=== PATIENT | male | born 1970 | race Caucasian/White ===

== ENCOUNTER 2016-10-23 19:13 | Emergency (ER) | payer MEDICAID ==
[~2016-10-23] VITALS: Ht 182.9 cm; Wt 104.3 kg
[~2016-10-23 19:13] MED LIST: ASPI81TA27; CITA-73; CLON0.1T; LEVO112T4; MIRT45TA3; QUET300T14 PO
[2016-10-23 19:24] VITALS: BP 110/76
== END 2016-10-23 20:59 | disposition home or self-care (01) ==
LOC: ER 19:19
DX: L02.413 Cutaneous abscess of right upper limb (principal); L03.113 Cellulitis of right upper limb; J44.9 Chronic obstructive pulmonary disease, unspecified; I25.2 Old myocardial infarction; F17.210 Nicotine dependence, cigarettes, uncomplicated; F12.10 Cannabis abuse, uncomplicated; F15.10 Other stimulant abuse, uncomplicated

== ENCOUNTER 2020-05-28 05:35 | Emergency (ER) | payer MEDICAID ==
[~2020-05-28] VITALS: Ht 182.9 cm; Wt 108.9 kg
[~2020-05-28 05:35] MED LIST changes: +ASPI-543; -ASPI81TA27; +MIRT1TAB40; -MIRT45TA3
[2020-05-28 05:43] VITALS: BP 156/99
== END 2020-05-28 09:30 | disposition left against medical advice (07) ==
LOC: ER 05:35
DX: J06.9 Acute upper respiratory infection, unspecified (principal); J44.9 Chronic obstructive pulmonary disease, unspecified; I25.2 Old myocardial infarction; F17.210 Nicotine dependence, cigarettes, uncomplicated; F12.10 Cannabis abuse, uncomplicated; F15.10 Other stimulant abuse, uncomplicated
CPT/HCPCS: 71045; 99283; J7030

== ENCOUNTER 2020-06-25 00:11 | Emergency (ER) | payer MEDICAID ==
[~2020-06-25] VITALS: Ht 175.3 cm; Wt 95.3 kg
[2020-06-25 00:15] VITALS: BP 108/73
[2020-06-25] MEDS ORDERED: ONDANSETRON HCL 4 MG/2 ML VIAL IV ONE (00:30)
[2020-06-25] MEDS ORDERED: PANTOPRAZOLE 40 MG/10 ML VIAL INJ IV ONE (00:30)
[2020-06-25 03:23] LABS: Basophils # (auto) 0.1 10 ^3/uL (0-0.2); Basophils % (auto) 0.5 % (0.0-2.0); Eosinophils # (auto) 0 10 ^3/uL (0-0.8); Eosinophils % (auto) 0.2 % (0.0-7.0); Hematocrit 45.9 % (41.0-53.0); Hemoglobin 15.5 g/dL (13.5-17.5); Lymphocytes # (auto) 1.3 10 ^3/uL (0.4-5.4); Lymphocytes % (auto) 10.8 % (10.0-50.0); Mean Corpuscular Hemoglobin 31.4 pg (28.0-32.0); Mean Corpuscular Hgb Conc. 33.8 g/dL (32.0-36.0); Mean Corpuscular Volume 92.8 fL (80.0-100.0); Monocytes # (auto) 0.8 10 ^3/uL (0-1.3); Monocytes % (auto) 6.9 % (0.0-12.0); Neutrophils # (auto) 9.8 10 ^3/uL (1.6-8.6); Neutrophils % (auto) 81.6 % (37.0-80.0); Nucleated Red Blood Cells % 0.1 %; Red Blood Cells 4.94 10^6/uL (4.5-5.90); Red Cell Distribution Width 14.1 % (11.8-14.3)
[2020-06-25 03:40] LABS: Albumin 4.1 g/dL (3.4-5.0); Calcium 9.1 mg/dL (8.5-10.1); Potassium 5.1 mmol/L (3.5-5.1)
[2020-06-25 03:43] LABS: BUN/Creatinine Ratio 12.9; Bilirubin, Total 0.4 mg/dL (0.2-1.0); Total Protein 7.6 g/dL (6.4-8.2)
== END 2020-06-25 07:32 | disposition home or self-care (01) ==
LOC: ER 00:11 → EDBD 00:11 → ER 07:32
DX: R11.2 Nausea with vomiting, unspecified (principal); R51.9 Headache, unspecified; J44.9 Chronic obstructive pulmonary disease, unspecified; I25.2 Old myocardial infarction; F17.210 Nicotine dependence, cigarettes, uncomplicated; F12.10 Cannabis abuse, uncomplicated; F15.10 Other stimulant abuse, uncomplicated
CPT/HCPCS: 36415; 80053; 85025

== ENCOUNTER 2020-07-21 02:37 | Emergency (ER) | payer MEDICAID ==
[~2020-07-21] VITALS: Ht 182.9 cm; Wt 108.9 kg
[2020-07-21 02:52] VITALS: BP 143/85
[2020-07-21 03:23] LABS: Basophils # (auto) 0.1 10 ^3/uL (0-0.2); Basophils % (auto) 0.7 % (0.0-2.0); Eosinophils # (auto) 0.2 10 ^3/uL (0-0.8); Hematocrit 42.5 % (41.0-53.0); Hemoglobin 14.6 g/dL (13.5-17.5); Lymphocytes # (auto) 3.1 10 ^3/uL (0.4-5.4); Lymphocytes % (auto) 41.2 % (10.0-50.0); Mean Corpuscular Hemoglobin 31.9 pg (28.0-32.0); Mean Corpuscular Hgb Conc. 34.4 g/dL (32.0-36.0); Mean Corpuscular Volume 92.8 fL (80.0-100.0); Monocytes # (auto) 0.7 10 ^3/uL (0-1.3); Monocytes % (auto) 9.4 % (0.0-12.0); Neutrophils # (auto) 3.4 10 ^3/uL (1.6-8.6); Neutrophils % (auto) 45.7 % (37.0-80.0); Platelet Count (auto) 219 10^3/uL (140-450); Red Blood Cells 4.58 10^6/uL (4.5-5.90); Red Cell Distribution Width 13.8 % (11.8-14.3); White Blood Cell 7.4 10^3/uL (4.4-10.8)
[2020-07-21 03:41] LABS: BUN/Creatinine Ratio 10.2; Calcium 8.8 mg/dL (8.5-10.1)
[2020-07-21 03:43] LABS: Bilirubin, Total 0.3 mg/dL (0.2-1.0); Total Protein 7.2 g/dL (6.4-8.2)
== END 2020-07-21 04:49 | disposition left against medical advice (07) ==
LOC: ER 02:38
DX: R10.11 Right upper quadrant pain (principal); Z53.21 Procedure and treatment not carried out due to patient leaving prior to being seen by health care provider
CPT/HCPCS: 36415; 80053; 83690; 85025; J7030

== ENCOUNTER 2025-03-10 04:18 | Emergency (ER) | payer MEDICAID ==
[~2025-03-10] VITALS: Ht 182.9 cm; Wt 128.6 kg
--- NOTE | 2025-03-10 04:48 | ED.PDOC ---
History of Present Illness HPI Comments 55 y/o obese M presents with c/c of RUQ abdominal pain. Patient endorses on sudden onset of pain after coughing, excessively, earlier, this morning. Denial of any nausea, vomiting, urinary symptoms, or further acute symptoms at this time. No further pertinent history, lifestyle changes, or events endorsed. Chief Complaint: Rib Pain Time Seen by MD: 04:45 Primary Care Provider: UNK Allergies: Coded Allergies: NO KNOWN ALLERGIES (Unverified , 06/25/20) Home Meds Active Scripts Amlodipine Besylate (Amlodipine Besylate) 5 Mg Tab, 1 TAB PO DAILY for 90 Days, #90 TAB 5 Refills Prov:DEMETRA ASCENCIO MD 03/10/25 Dicyclomine Hcl (BENTYL CAPSULE) 10 Mg Cp, 1 CAP PO Q6HPRN PRN, #100 CAP 3 Refills Prov:DEMETRA ASCENCIO MD 03/10/25 Reported Medications Clonidine Hydrochloride (Clonidine Hcl) 0.1 Mg Tab, #60 03/12/15 Aspirin (Aspir-Low) 81 Mg Tab, #30 03/12/15 Mirtazapine (Mirtazapine Oral Disintegrating Tablet) 45 Mg Tab, #30 15 Citalopram Hydrobromide (Citalopram Hydrobromide) 40 Mg Tab, #30 03/12/15 Quetiapine Fumerate (Seroquel) 300 Mg Tab, 1 TAB PO QPM, #30 TAB 1 Refill 03/12/15 Levothyroxine Sodium (Levothyroxine Sodium) 112 Mcg Tab, #30 03/12/15 Information Source: Patient Mode of Arrival: Ambulatory Past Medical History PAST MEDICAL HISTORY: COPD, Depression, [place], Schizophrenia Surgical History: Denies all surgeries Family History Family History: No family hx of Stroke Social History Smoker: Cigarettes, Greater Than 1 Pack/Day Alcohol: Heavy Drugs: Marijuana, Methamphetamine Lives In: Home All Other Systems: Reviewed and Negative (As per HPI) Physical Exam General Appearance: Mild Distress, Obese HEENT: Normal ENT Inspection, Pharynx Normal, TMs Normal Neck: Full Range of Motion, Non-Tender, Normal, Normal Inspection Respiratory: Chest Non-Tender, Lungs Clear, No Accessory Muscle Use, No Respiratory Distress, Normal Breath Sounds Cardiovascular: No Edema, No JVD, No Murmur, No Gallop, Normal Peripheral Pulses, Regular Rate/Rhythm Breast Exam: Deferred Gastrointestinal: No Organomegaly, No Pulsatile Mass, Normal Bowel Sounds, RUQ (tenderness), Soft, Tenderness (RUQ area) Genitalia: Deferred Pelvic: Deferred Rectal: Deferred Extremities: No calf tenderness, Normal capillary refill, Normal inspection, Normal range of motion, Non-tender, No pedal edema Musculoskeletal : Apperance: Normal Neurologic: Alert, 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 Was a procedure done?: No Differential Dx Considerations may include: cholelithiasis, cholecystitis, GERD, PUD, gastritis, gastroenteritis, musculoskeletal pain, nephrolithiasis, pyelonephritis, among others X-Ray, Labs, Meds, VS Vital Signs Date Time Temp Pulse Resp B/P (MAP) Pulse Ox O2 Delivery O2 Flow Rate FiO2 03/10/25 05:25 98.3 79 19 139/105 (116) 98 98.3 03/10/25 04:32 85 03/10/25 04:27 97.7 89 24 175/106 91 97.7 Lab Test 03/10/25 05:12 Range/Units White Blood Count 6.5 4.4-10.8 10^3/uL Red Blood Count 4.40 L 4.5-5.90 10^6/uL Hemoglobin 14.4 13.5-17.5 g/dL Hematocrit 41.7 41.0-53.0 % Mean Corpuscular Volume 94.7 80.0-100.0 fL Mean Corpuscular Hemoglobin 32.8 H 28.0-32.0 pg Mean Corpuscular Hemoglobin Concent 34.6 32.0-36.0 g/dL Red Cell Distribution Width 14.5 H 11.8-14.3 % Platelet Count 169 140-450 10^3/uL Mean Platelet Volume 9.0 6.9-10.8 fL Neutrophils (%) (Auto) 51.9 37.0-80.0 % Lymphocytes (%) (Auto) 33.6 10.0-50.0 % Monocytes (%) (Auto) 8.8 0.0-12.0 % Eosinophils (%) (Auto) 4.3 0.0-7.0 % Basophils (%) (Auto) 1.4 0.0-2.0 % Neutrophils # (Auto) 3.4 1.6-8.6 10 ^3/uL Lymphocytes # (Auto) 2.2 0.4-5.4 10 ^3/uL Monocytes # (Auto) 0.6 0-1.3 10 ^3/uL Eosinophils # (Auto) 0.3 0-0.8 10 ^3/uL Basophils # (Auto) 0.1 0-0.2 10 ^3/uL Nucleated Red Blood Cells 0.2 % Sodium Level 137 136-145 mmol/L Potassium Level 4.0 3.5-5.1 mmol/L Chloride Level 103 98-107 mmol/L Carbon Dioxide Level 24 20-31 mmol/L Anion Gap 10 5-15 Blood Urea Nitrogen 11 9-23 mg/dL Creatinine 1.25 0.700-1.30 mg/dL Glomerular Filtration Rate Calc 68 >90 mL/min BUN/Creatinine Ratio 8.8 L 10.0-20.0 Serum Glucose 166 H 74-106 mg/dL Calcium Level 9.3 8.7-10.4 mg/dL Total Bilirubin 0.6 0.2-1.0 mg/dL Aspartate Amino Transferase (AST) 108 H 13-40 U/L Alanine Aminotransferase (ALT) 136 H 7-40 U/L Alkaline Phosphatase 86 46-116 U/L Troponin I High Sensitivity < 3 L </=54 ng/L Total Protein 7.3 5.7-8.2 g/dL Albumin 4.7 3.2-4.8 g/dL Lipase 41 12-53 U/L Current Medications Medications (Trade) Dose Ordered Sig/Srikanth Route Start Time Stop Time Status Last Admin Acetaminophen/ Hydrocodone Bitart ([place] 10/325MG Tab) 1 tab ONCE ONCE PO 03/10/25 04:45 03/10/25 04:46 DC 03/10/25 05:34 Time of 1ST Reevaluation: 05:15 Reevaluation 1ST: Unchanged Patient Education/Counseling: Treatment Family Education/Counseling: No Family Present SEPSIS Sepsis Screen Date sepsis recognized/suspect: Mar 10, 2025 Time Sepsis recognized/suspect: 431 Recent Procedure: No On Antibiotic Therapy: No Respiratory Rate >20: Yes Heart Rate >90: No Temp<36 C (96.8 F) or >38.3 C: No SBP <90 or MAP <65 mmHG: No New Acute Mental Status Change: No Is the patient on CPAP, BIPAP,: No Physician Orders Electrocardigram (03/10/25 04:25) Ct Ab Pel Wo Con-No Oral Or Iv (03/10/25 04:43) Vital Signs Date Time Temp Pulse Resp B/P (MAP) Pulse Ox O2 Delivery O2 Flow Rate FiO2 03/10/25 05:25 98.3 79 19 139/105 (116) 98 98.3 03/10/25 04:32 85 03/10/25 04:27 97.7 89 24 175/106 91 97.7 Laboratory Tests Test 03/10/25 05:12 White Blood Count 6.5 10^3/uL (4.4-10.8) Departure 1 Departure Time of Disposition: 06:00 Impression: Primary Impression: Abdominal pain Additional Impression: Biliary colic Disposition: HOME / SELF CARE / HOMELESS Condition: Stable e-Prescriptions Amlodipine Besylate (Amlodipine Besylate) 5 Mg Tab 1 TAB PO DAILY for 90 Days, #90 TAB 5 Refills Prov: DEMETRA ASCENCIO MD 03/10/25 Dicyclomine Hcl (BENTYL CAPSULE) 10 Mg Cp 1 CAP PO Q6HPRN PRN, #100 CAP 3 Refills Prov: DEMETRA ASCENCIO MD 03/10/25 Discharged With: Self Critical Care Note Critical Care Time?: No Stability Stability form required: No Heart Score Heart Score: Heart Score Response (Comments) Value History N/A 0 EKG N/A 0 Age N/A 0 Risk Factors N/A 0 Troponin N/A 0 Total 0 I personally scribed for DEMETRA ASCENCIO MD ([email or web address]) on 03/10/25 at 04:48. Electronically submitted by Carlos Garcia [email or web address]). DEMETRA ASCENCIO MD Mar 10, 2025 04:48
--- NOTE | 2025-03-10 05:17 | DVH ---
Exam: CT CT AB PEL WO CON-NO ORAL OR IV History: right flank pain Comparison Study: None Technique: Multidetector spiral CT of the abdomen was performed from lung bases to pubic symphysis. I maging was performed without IV contrast. Axial, coronal and sagittal multiplanar reformats were obta ined from the axial data set by the technologist. Radiation Dose : 1. Abdomen/Pelvis: CTDIvol 27.75 mGy, DLP 1809.93 mGy*cm. Findings: Evaluation of solid organs is limited due to lack of intravenous contrast use. Lung Bases: Dependent atelectasis is noted. No pleural or pericardial effusion. Normal heart size. Liver: Hepatic steatosis and hepatomegaly. No focal lesions. Gallbladder and Biliary Tree: Cholelithiasis. No secondary signs of cholecystitis. Spleen: Unremarkable Pancreas: The pancreas is grossly normal in appearance. Adrenal Glands: Unremarkable Kidneys: Punctate 0.1 cm nonobstructing stone in the left mid kidney. Right kidney is unremarkable. N o hydronephrosis. Bladder: Grossly unremarkable for degree of distention. Bowel: The stomach is grossly normal in appearance. Small bowel and colon are normal in caliber and d istribution. Appendix is unremarkable. Ascites: Absent Lymphadenopathy: No mesenteric, retroperitoneal or periportal lymphadenopathy. Abdominal Wall and Mesentery: Unremarkable. Vasculature: Vascular calcifications of the aorta. Evaluation of abdominal and pelvic vessels is limi vega due to lack of intravenous contrast. Pelvic Organs: Unremarkable Musculoskeletal: Multilevel degenerative changes of the spine. No aggressive focal bony lesions, acut e fractures or dislocation. IMPRESSION: No acute abnormalities in the abdomen or pelvis. Punctate nonobstructing stone in the left mid kidney. Cholelithiasis. Hepatic steatosis and hepatomegaly. Radiation optimization: All CT scans at this facility use at least one of these dose optimization clem hniques: automated exposure control mA and/or kV adjustment per patient size (includes targeted exam s where dose is matched to clinical indication) or iterative reconstruction.
[2025-03-10 05:25] VITALS: BP 139/105; PULSE 79; RESP 19; TEMP 98.3; O2SAT 98
[2025-03-10] MEDS: ONDANSETRON ODT 4 MG TAB PO ONE (05:33)
[2025-03-10] MEDS: HYDROcodone-ACET 10/325MG TAB PO ONE (05:34)
[2025-03-10 05:38] LABS: Hematocrit 41.7 % (41.0-53.0); Hemoglobin 14.4 g/dL (13.5-17.5); Mean Corpuscular Hemoglobin 32.8 pg (28.0-32.0); Mean Corpuscular Volume 94.7 fL (80.0-100.0); Nucleated Red Blood Cells % 0.2 %
[2025-03-10] MEDS ORDERED: AMLO1TAB22 PO (05:45)
[2025-03-10] MEDS ORDERED: DICY10CA PO (05:45)
[2025-03-10 05:56] LABS: Albumin 4.7 g/dL (3.2-4.8); Alkaline Phosphatase 86 U/L (46-116); Anion Gap 10 (5-15); BUN/Creatinine Ratio 8.8 (10.0-20.0); Blood Urea Nitrogen 11 mg/dL (9-23); Calcium 9.3 mg/dL (8.7-10.4); Carbon Dioxide 24 mmol/L (20-31); Chloride 103 mmol/L (98-107); Lipase 41 U/L (12-53); Potassium 4.0 mmol/L (3.5-5.1); Sodium 137 mmol/L (136-145); Total Protein 7.3 g/dL (5.7-8.2)
[2025-03-10 05:57] LABS: Bilirubin, Total 0.6 mg/dL (0.2-1.0)
[2025-03-10 05:58] LABS: Alanine Aminotransferase 136 U/L (7-40); Glucose 166 mg/dL (74-106)
--- NOTE | 2025-03-10 15:05 | ECG ---
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
== END 2025-03-10 06:19 | disposition home or self-care (01) ==
LOC: ER 04:22
DX: K80.70 Calculus of gallbladder and bile duct without cholecystitis without obstruction (principal); R10.11 Right upper quadrant pain; K76.0 Fatty (change of) liver, not elsewhere classified; J44.9 Chronic obstructive pulmonary disease, unspecified; F32.A Depression, unspecified; Z79.899 Other long term (current) drug therapy
CPT/HCPCS: 36415; 74176; 80053; 83690; 84484; 85025; 93005

== ENCOUNTER 2025-04-02 18:09 | Emergency (ER) | payer MEDICAID ==
[~2025-04-02 18:09] MED LIST changes: +AMLO1TAB22 PO; +DICY10CA PO
[2025-04-02] MEDS ORDERED: SODIUM CHLORIDE 0.9% 1,000 ML IV ONE (18:15)
[2025-04-02] MEDS ORDERED: FLUORESCEIN SOD OPTH TEST STRIP RIGHTEYE ONE (18:15)
[2025-04-02] MEDS ORDERED: FLUORESCEIN SOD OPTH TEST STRIP LEFTEYE ONE (18:15)
[2025-04-02] MEDS ORDERED: TETRACAINE HCL 0.5% OPTH(EYE) SOLN 4ML LEFTEYE ONE (18:15)
[2025-04-02] MEDS ORDERED: TETRACAINE HCL 0.5% OPTH(EYE) SOLN 4ML RIGHTEYE ONE (18:15)
== END 2025-04-02 18:15 | disposition left against medical advice (07) ==
LOC: ER 18:09
DX: H57.13 Ocular pain, bilateral (principal); Z53.21 Procedure and treatment not carried out due to patient leaving prior to being seen by health care provider